=== PATIENT | female | born 1980 | race Asian ===

== ENCOUNTER 2025-05-12 08:36 | Outpatient (AMB) | payer OTHER, SELFPAY ==
--- OUTSIDE RECORDS SUMMARY | 2025-05-12 09:54 | XMS_ITS | Clinical Summary ---
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 Name Role Phone Noy Hernandez MD Primary Care Provider Allergies Active Allergy Reactions Criticality Noted Date Comments Fluticasone 09/27/2024 Other Reaction(s): extreme dizziness Lisinopril 09/27/2024 Other Reaction(s): Cough Naproxen 09/27/2024 Other Reaction(s): hives,swollen eyes Nickel 09/27/2024 Other Reaction(s): Rash Other 09/27/2024 Other Reaction(s): allergy shots every three weeks, trees, pollen, grass , dust Medications simethicone (MYLICON) 80 mg chewable tablet CHEW 1 TABLET 4 TIMES A DAY NEEDED FOR GAS AND BLOATING 08/22/2024 Active omeprazole (PRILOSEC) 20 MG capsule 1 CAPSULE BY MOUTH 2 TIMES A DAY,INSTR:30 MIN BEFORE A MEAL 08/22/2024 Active losartan (COZAAR) 50 MG tablet Take 50 mg by mouth daily. Active hydroCHLOROthia zide 12.5 mg capsule See Instructions, TAKE 1 CAPSULE BY MOUTH EVERY DAY, # 90 capsule, 1 Refills, Maintenance, 07/10/24 10:01:00 PM EST, [facility]/pharmacy #5, 158.2, cm, 03/19/24 11:32:00 EDT, Height 07/10/2024 Active atorvastatin (LIPITOR) 40 MG tablet Take 40 mg by mouth daily. Active albuterol 90 mcg/actuation inhaler Inhale into the lungs. 01/29/2024 Active aspirin 81 mg chewable tablet Take 81 mg by mouth daily. Active predniSONE (DELTASONE) 20 MG tablet 3 tablets X 3 days, 2 tablets X 3 days , 1 tablet X 3 days 18 tablet 09/27/2024 Active Active Problems Problem Noted Date Diagnosed Date Allergic rhinitis 09/27/2024 Overview (09/27/2024): immunotherapy Dr Boyle multiple environemental allergies Allergy to nickel 09/27/2024 Essential hypertension 09/27/2024 Severe obesity (BMI 35.0-39.9) with comorbidity 09/27/2024 Severe obstructive sleep apnea-hypopnea syndrome 09/27/2024 Asthma 09/27/2024 Overview (09/27/2024): mild intermittent, with URI only Status post CVA 09/27/2024 Type 2 diabetes mellitus 09/27/2024 Immunizations No known immunizations Social History Tobacco Use Types Packs/Day Years Used Date Smoking Tobacco: Never Smokeless Tobacco: Never Tobacco Cessation:Counseling Given: Not Answered Education Answer Date Recorded Are you interested in more education? Not on mi e 09/27/2024 Are you concerned about learning? Not on file 09/27/2024 No 09/27/2024 No 09/27/2024 Digital Access Answer Date Recorded No 09/27/2024 No 09/27/2024 Reliable internet access at home? Not on file 09/27/2024 Device with a working camera? Not on file Comments Unknown Sex and Gender Information Value Date Recorded Sex Assigned at Not on file Legal Sex Female 9:23 PM EDT Gender Identity Not on file Sexual Orientation Not on file Last Filed Vital Signs Vital Sign Reading Time Taken Comments Blood Pressure 115/81 09/27/2024 2:42 PM EST Pulse 96 09/27/2024 2:42 PM EST Temperature 37.1 C (98.7 F) 09/27/2024 2:42 PM EST Respiratory Rate 18 09/27/2024 2:42 PM EST Oxygen Saturation 100% 09/27/2024 2:42 PM EST Inhaled Oxygen Concentration - - Weight - - Height - - Body Mass Index - - Plan of Treatment Health Maintenance Due Date Last Done Comments CREATININE LEVEL 1979 HEMOGLOBIN A1C 1979 POTASSIUM LEVEL 1979 DEPRESSION SCREENING 1991 HEPATITIS C SCREENING 1997 HIV ONE-TIME SCREENING (18-65 YEARS) 1997 PNEUMOCOCCAL VACCINES (0-49 years) (1 of 2 - PCV) 1998 PAP SMEAR 2000 MAMMOGRAM 2019 COLOGUARD 2024 COLONOSCOPY 2024 COLORECTAL CANCER SCREENING 2024 FIT TEST 2024 FOBT 2024 SIGMOIDOSCOPY 2024 VIRTUAL COLONOSCOPY 2024 DIABETIC EYE EXAM 09/27/2024 INFLUENZA VACCINE (#1) 2025 , 05/21/2022, 05/12/2021, Additional history exists BLOOD PRESSURE 03/27/2025 09/27/2024 COVID-19 VACCINE ( season) 2025 08/04/2023, 12/28/2022, 12/17/2021, Additional history exists Adult Td,Tdap Booster 12/18/2031 12/17/2021 SMOKING STATUS SCREENING (Once After 26 Yrs) Completed 09/27/2024 HEPATITIS A VACCINES Aged Out No long er eligible based on patient's age to complete this topic HIB VACCINES Aged Out No longer eligi ble based on patient's age to complete this topic MENINGOCOCCAL VACCINES (ACWY) Aged Out No longer eligible based on patient's age to complete this topic MENINGOCOCCAL VACCINES (B) Aged Out N o longer eligible based on patient's age to complete this topic Medical Devices Not on file Insurance [facility] [place] [address] [place] [address] [place], [place] [id number] [address] HMO [facility] HMO HMO Care Teams Wash Oil Pump Operator Relationship Specialty Start Date End Date Noy Hernandez [facility] [place] [id number] PCP - General Family Medicine 09/27/24 Additional Source Comments The information contained in this document represents components of the legal health record. It is not the complete legal health record.[facility]
== END 2025-05-12 08:38 | disposition home or self-care (01) ==
LOC: HO.HMGAL 08:36
PROVIDERS: PCP Family Medicine; Visit Provider Registered Nurse Emergency
DX: J30.89 Other allergic rhinitis (principal)
CPT/HCPCS: 95117; 95165

== ENCOUNTER 2025-07-02 16:02 | Outpatient (AMB) | payer OTHER, SELFPAY ==
--- OUTSIDE RECORDS SUMMARY | 2025-07-02 18:54 | XMS_ITS | Clinical Summary ---
Author Organization [facility] Address [address] [place], [place] [id number] Phone Care Team Providers Care Customer Specialist Name Role Phone Noy Hernandez MD Primary [...] 1 Refills, Maintenance, 07/10/24 10:01:00 PM EST, [facility]/pharmacy #5, 158.2, cm, 03/19/24 11:32:00 EDT, [...] on patient's age to complete this topic IPV VACCINES Aged Out No longer eligi ble based on patient's age to complete this topic MENINGOCOCCAL VACCINES (ACWY) Aged Out No longer eligible based on patient's age to complete this topic MENINGOCOCCAL VACCINES (B) Aged Out N o longer eligible based on patient's age to complete this topic Medical Devices Not on file [place] [address] [place] [address] [place] [address] [place] [address] [place] [address] [place] [id number] [place] [address] HMO Care Teams Customer Specialist Relationship Specialty Start Date End Date Noy Hernandez MD [address] [place] [id number] [email or web address] PCP - General Family Medicine 09/27/24 Additional Source Comments The information contained in this document represents components of the legal health record. It is not the complete legal health record.[facility]
== END 2025-07-02 16:05 | disposition home or self-care (01) ==
LOC: HO.HMGAL 16:02
PROVIDERS: PCP Family Medicine; Visit Provider Registered Nurse Emergency
DX: J30.89 Other allergic rhinitis (principal)
CPT/HCPCS: 95117; 95165

== ENCOUNTER 2025-08-04 08:29 | Outpatient (AMB) | payer OTHER, SELFPAY | END 2025-08-04 08:32 | disposition home or self-care (01) | LOC: HO.HMGAL 08:30 | PROVIDERS: PCP Family Medicine; Visit Provider Registered Nurse Emergency | DX: J30.89 Other allergic rhinitis (principal) | CPT/HCPCS: 95117; 95165 ==